=== PATIENT | female | born 1940 | race Caucasian/White ===

== ENCOUNTER 2017-12-09 12:48 | Day surgery (SDC) | payer OTHER ==
[~2017-12-09] VITALS: Ht 157.5 cm; Wt 47.6 kg
[~2017-12-09 12:48] MED LIST: ANORO ELLIPTA1 EACH IH; CARDIZEM LA120 MG PO; LASIX40 MG PO; NEXIUM40 MG PO; NON-ASPIRIN EX500 M2 PO; PAXIL20 MG PO; VENTOLIN HFA18 GM IH
[2017-12-09 13:50] LABS: CHLORIDE 113 MEQ/L (99-109); GFR ESTIMATE (CALCULATED) 57 mL/min/; GLUCOSE 100 mg/dL (70-99); POTASSIUM 3.9 MEQ/L (3.7-5.4); SODIUM 143 MEQ/L (136-147); UREA NITROGEN (BUN) 23 mg/dL (9-23)
[2017-12-09 13:59] VITALS: BP 139/63
[2017-12-09 17:10] VITALS: BP 147/57
[2017-12-09 17:54] VITALS: BP 151/67
== END 2017-12-09 18:00 | disposition home or self-care (01) ==
LOC: SDC 12:48
PROVIDERS: Surgery Plastic and Reconstructive Surgery
DX: S01.112A Laceration without foreign body of left eyelid and periocular area, initial encounter (principal); S04.52XA Injury of facial nerve, left side, initial encounter; W19.XXXA Unspecified fall, initial encounter; I10 Essential (primary) hypertension; J44.9 Chronic obstructive pulmonary disease, unspecified; I25.10 Atherosclerotic heart disease of native coronary artery without angina pectoris; I27.20 Pulmonary hypertension, unspecified; R01.1 Cardiac murmur, unspecified; K21.9 Gastro-esophageal reflux disease without esophagitis; Z85.828 Personal history of other malignant neoplasm of skin; Z87.891 Personal history of nicotine dependence; Z86.73 Personal history of transient ischemic attack (TIA), and cerebral infarction without residual deficits
CPT/HCPCS: 80048; 93005; J0690; J2250; J2405; J7120; S0020